=== PATIENT | male | born 1965 | race Caucasian/White ===

== ENCOUNTER 2022-03-23 15:31 | Inpatient (IN) | payer MEDICAID ==
[~2022-03-23] VITALS: Ht 180.3 cm; Wt 72.6 kg
--- NOTE | 2022-03-23 16:05 | NUR ---
PT W/ C/O MULTIPLE SKIN LESIONS X6 DAYS. PT STATES HE GOT TESTED FOR MONKEY PO 2 DAYS AGO BUT NO RESULT YET. TO ER BED 6.
--- NOTE | 2022-03-23 16:20 | NUR ---
DALLIN DEL RIO, AT BEDSIDE FOR EVAL
[2022-03-23] MEDS ORDERED: IBUPROFEN SUSP 100 MG/5 ML UDC ONE (16:41)
[2022-03-23] MEDS ORDERED: KETOROLAC TROMETHAMINE INJ 30 MG/ML VIAL IV ONE (17:00)
[2022-03-23] MEDS ORDERED: VANCOMYCIN 1 GM in IV D5W 250 ML IV ONE (17:00)
[2022-03-23] MEDS ORDERED: IV NS 0.9% 1,000 ML BAG IV ONE (17:00)
[2022-03-23] MEDS ORDERED: PIPERACILLIN /TAZOBACTAM 3.375 G in IV D5W 50 ML IV ONE (17:00)
[2022-03-23] MEDS ORDERED: DEXAMETHASONE SOD PHOSPHATE 10 MG/ML VIAL IV ONE (17:00)
[2022-03-23] MEDS ORDERED: diphenhydrAMINE HCL 50 MG/ML VIAL IV ONE (17:00)
--- NOTE | 2022-03-23 17:00 | NUR ---
MOVE SHEET SUBMITTED.
--- NOTE | 2022-03-23 17:21 | NUR ---
STREP AND GONOCOCCAL SWABS OBTAINED AND SENT TO LAB
[2022-03-23 17:22] LABS: BASOPHILS % (AUTO) 0.4 % (0.0-2.0); EOSINOPHILS % (AUTO) 4.7 % (0.0-6.0); HEMATOCRIT 41 % (39-51); HEMOGLOBIN 13.6 g/dL (13.5-17.5); LYMPHOCYTES # (AUTO) 1.1 K/uL (0.8-4.8); LYMPHOCYTES % (AUTO) 18.9 % (20.0-44.0); MEAN CORPUSCULAR HGB CONC 33 g/dl (31.0-36.0); MEAN CORPUSCULAR VOLUME 88 fL (80-96); MONOCYTES # (AUTO) 0.7 K/uL (0.1-1.30); MONOCYTES % (AUTO) 11.3 % (2.0-12.0); NEUTROPHILS # (AUTO) 3.9 K/uL (1.8-8.9); NEUTROPHILS % (AUTO) 64.7 % (43.0-81.0); PLATELET COUNT (AUTO) 139 K/uL (150-450); RED BLOOD CELL COUNT(AUTO) 4.65 MIL/uL (4.5-6.0); WHITE BLOOD COUNT (AUTO) 6.1 K/uL (4.3-11.0)
[2022-03-23] MEDS ORDERED: DEXAMETHASONE SOD PHOSPHATE 10 MG/ML VIAL ONE (17:23)
[2022-03-23] MEDS ORDERED: KETOROLAC TROMETHAMINE 15 MG/ML VIAL ONE (17:24)
[2022-03-23] MEDS ORDERED: diphenhydrAMINE HCL 50 MG/ML VIAL ONE (17:24)
--- NOTE | 2022-03-23 17:34 | NUR ---
COVID SWAB COLLECTED AND SENT TO LAB
[2022-03-23 17:52] LABS: CALCIUM, SERUM 8.4 mg/dL (8.5-10.1); CREATININE 1.2 mg/dL (0.6-1.3)
[2022-03-23 17:56] LABS: ALBUMIN 3.1 g/dL (3.4-5.0); BILIRUBIN,DIRECT 0.2 mg/dL (0.0-0.2); BILIRUBIN,TOTAL 0.5 mg/dL (0.2-1.0); TOTAL PROTEIN, SERUM 9.2 g/dL (6.4-8.2)
[2022-03-23 18:30] LABS: MONOTEST NEGATIVE (NEGATIVE)
--- NOTE | 2022-03-23 18:38 | NUR ---
PT REQUESTED FOR TYLENOL FOR PAIN/CHILLS; INFORMED DALLIN DEL RIO, W/ ORDER FOR TYLENOL ES 1000MG, ORDER IS READ BACK AND VERIFIED.
[2022-03-23] MEDS ORDERED: ACETAMINOPHEN ES 500 MG TABLET ONE (18:41)
[2022-03-23] MEDS ORDERED: ACETAMINOPHEN ES 500 MG TABLET PO ONE (19:00)
--- NOTE | 2022-03-23 19:04 | NUR ---
[facility] CALLED ASSISTANT BOILER OPERATOR PAGED.
--- NOTE | 2022-03-23 19:25 | NUR ---
OFFERED PT URINE CUP; NOT ABLE TO URINATE AT THIS TIME. WILL F/U WITH URINE SAMPLE
[2022-03-23] MEDS ORDERED: Z GUARD REMEDY 4 OZ OINT TP PRN (19:30)
[2022-03-23] MEDS ORDERED: ACETAMINOPHEN 325 MG TABLET PO PRN (19:30)
[2022-03-23] MEDS ORDERED: MAGNESIUM HYDROXIDE 30 ML UDC PO PRN (19:30)
[2022-03-23] MEDS ORDERED: ONDANSETRON HCL/PF 4 MG/2 ML VIAL IVP PRN (19:30)
[2022-03-23] MEDS ORDERED: ZOLPIDEM TARTRATE 5 MG TABLET PO PRN (19:30)
[2022-03-23] MEDS ORDERED: MAG HYDROX/AL HYDROX/SIMETH 30 ML UDC PO PRN (19:30)
--- NOTE | 2022-03-23 21:30 | NUR ---
URINE COLLECTED AND SENT TO LAB
[2022-03-23 22:16] LABS: BILIRUBIN,URINE NEGATIVE (NEGATIVE); COLOR,URINE YELLOW (YELLOW); LEUKOCYTE ESTERASE ,URINE TRACE (NEGATIVE); NITRITE, URINE NEGATIVE (NEGATIVE); PROTEIN,URINE NEGATIVE (NEGATIVE); UGLUCOSE NEGATIVE (NEGATIVE); UROBILINOGEN,URINE 0.2 EU/dL (0.2)
[2022-03-24] MEDS ORDERED: CEFTRIAXONE 1GM BAG (ER ONLY) 50 ML IV ONE (01:41)
[2022-03-24] MEDS: ZOSYN IVPB 3.375 G in IV D5W 50ml IV SCH ×3 (01:46→06:14)
[2022-03-24] MEDS: IV NS 0.9% 1,000 ML IV PRN ×2 (01:47→11:37)
[2022-03-24 02:16] LABS: BACTERIA,URINE None seen /HPF (None Seen); RBC,URINE 0-2 /HPF (0-2); SQUAMOUS EPITHELIAL CELL,UR Rare /HPF (None Seen); WBC,URINE 0-2 /HPF (0-3)
[2022-03-24 05:25] LABS: BASOPHILS % (AUTO) 0.2 % (0.0-2.0); EOSINOPHILS % (AUTO) 0.1 % (0.0-6.0); HEMATOCRIT 42 % (39-51); HEMOGLOBIN 13.8 g/dL (13.5-17.5); LYMPHOCYTES # (AUTO) 0.9 K/uL (0.8-4.8); LYMPHOCYTES % (AUTO) 21.7 % (20.0-44.0); MEAN CORPUSCULAR HGB CONC 33 g/dl (31.0-36.0); MEAN CORPUSCULAR VOLUME 88 fL (80-96); MONOCYTES # (AUTO) 0.2 K/uL (0.1-1.30); MONOCYTES % (AUTO) 3.8 % (2.0-12.0); NEUTROPHILS % (AUTO) 74.2 % (43.0-81.0); PLATELET COUNT (AUTO) 123 K/uL (150-450); RED BLOOD CELL COUNT(AUTO) 4.71 MIL/uL (4.5-6.0)
[2022-03-24 05:38] LABS: CALCIUM, SERUM 8.4 mg/dL (8.5-10.1); MAGNESIUM 2.7 mg/dL (1.8-2.4); PHOSPHORUS 3.8 mg/dL (2.5-4.9); POTASSIUM 4.6 mmol/L (3.5-5.1)
[2022-03-24] MEDS ORDERED: VANCOMYCIN 1 GM in IV D5W 250ml IV ONE (06:00)
[2022-03-24] MEDS ORDERED: PIPERACILLIN /TAZOBACTAM 3.375 G VIAL IV ONE (06:10)
[2022-03-24] MEDS ORDERED: VANCOMYCIN 0.75 GM in IV D5W 250 ML IV SCH (08:00)
[2022-03-24] MEDS ORDERED: VANCOMYCIN 1 GM in IV D5W 250 ML IV SCH (08:00)
--- NOTE | 2022-03-24 08:07 | NUR ---
REPORT GIVEN TO ANGEL LUIS FRIAS FOR SHUKRI
[2022-03-24] MEDS ORDERED: BICT1TAB PO (08:10)
[2022-03-24] MEDS ORDERED: ALBU2.5V11 NEB (08:10)
[2022-03-24] MEDS ORDERED: LORA10TA7 PO (08:10)
[2022-03-24] MEDS ORDERED: FLUT12AE15 INH (08:10)
--- NOTE | 2022-03-24 08:45 | NUR ---
RN NOTE RECEIVED PATIENT PLACED IN ROOM 117-2 STABLE CONDITION
[2022-03-24] MEDS: PIPERACILLIN /TAZOBACTAM 3.375 G in IV D5W 100 ML IV SCH ×2 (11:36→18:55)
[2022-03-24] MEDS ORDERED: PIPERACILLIN /TAZOBACTAM 3.375 G in IV D5W 50 ML IV SCH (12:00)
--- NOTE | 2022-03-24 13:00 | NUR ---
RN NOTE PATENTS ROOM CHANGED DUE TO MONKEY POX RESULT PATIENT INFORMED RN AND WATER PUMPER THAT HE RECEIVED CALL FROM [employer] [facility] CONFIRMING POSITIVE RESULT. DISCUSSED WITH PATIENT THE NEED FOR A PHYSICAL COPY OF RESULTS PER PATIENT HE WILL ASK [facility] FOR RECORD. PLACED IN ISOLATION ROOM 105, PATIENT TRANSFERRED IN STABLE CONDITION.
[2022-03-24 16:00] VITALS: BP 105/60
[2022-03-24] MEDS: VANCOMYCIN 1 GM in IV D5W 250 ML IV SCH (17:45)
--- NOTE | 2022-03-24 18:48 | NUR ---
RN CLOSING NOTE PATIENT RESTING IN BED A/OX4 ON ROOM AIR WITH NO CURRENT COMPLAINTS OF PAIN IS ABLE TO MAKE NEEDS KNOWN. SAFETY MEASURES IN PLACE, BED IN THE LOWEST SETTING 2 SIDE RAILS UP, CALL LIGHT WITHIN REACH. PATIENT IS ON ISOLATION PRECAUTIONS. WILL ENDORSE TO NIGHT NURSE FOR SHUKRI.
[2022-03-24 20:00] VITALS: BP 120/74
--- NOTE | 2022-03-24 22:05 | NUR ---
MS RN OPENING NOTE PT RECEIVED IN BED AWAKE, A&O X4, CALM, COOPERATIVE, PLEASANT. PT ON RA WITH CURRENT O2SAT OF 96%; PT IN NO APPARENT DISTRESS, NO SOB OR COUGH, NON-LABORED AND EQUAL BREATHING; APPEARS COMFORTABLE. VSS, WILL MONITOR THROUGHOUT THE NIGHT NEEDED. PT NOTED TO HAVE RASH THAT'S RED IN COLOR LOCATED ON GROIN, ARMS, UNDERARMS, CHEST, AND LEGS; NO BLISTERS NOTED. PT NOTED TO BE AMBULATORY WITH STEADY GAIT. ALEJANDRA MIDLINE INTACT AND PATENT, FLUSHES EASILY WITH NO RESISTANCE; NS RUNNING AT 75 ML/HR AND ZOSYN RUNNING AT 25 ML/HR. BED IN LOWEST POSITION, CALL LIGHT WITHIN REACH, SIDE RAILS UP X2. WILL CONTINUE TO MONITOR THROUGHOUT THE NIGHT.
[2022-03-25] MEDS: PIPERACILLIN /TAZOBACTAM 3.375 G in IV D5W 100 ML IV SCH ×3 (02:11→17:08)
[2022-03-25] MEDS: HYDROCODONE/APAP 10/325MG TABLET PO PRN (02:27)
--- NOTE | 2022-03-25 02:28 | NUR ---
RN NOTE PT COMPLAINS OF A 9/10 PAIN ON HIS TONGUE THAT'S DESCRIBED ACHING AND THROBBING. PT ADMINISTERED NORCO 1 TAB. WILL MONITOR FOR EFFECTIVENESS.
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
[2022-03-25] MEDS ORDERED: DEXAMETHASONE SOD PHOSPHATE 4 MG/ML VIAL IV ONE (03:30)
--- NOTE | 2022-03-25 03:31 | NUR ---
RN NOTE PT REPORTS THAT HIS RASHES ARE FEELING EXTREMELY INFLAMED AND SAYS THAT THE DECADRON HE RECEIVED WHILE HE WAS IN THE ER WAS EFFECTIVE. OBTAINED ORDER FROM KOFI VICTORIA FOR DECADRON IV 4 MG X1. ORDER OBTAINED AND CARRIED OUT
[2022-03-25 04:00] VITALS: BP 122/82
[2022-03-25] MEDS: VANCOMYCIN 1 GM in IV D5W 250 ML IV SCH (05:29)
[2022-03-25] MEDS: IV NS 0.9% 1,000 ML IV PRN (05:43)
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
[2022-03-25 07:09] LABS: CALCIUM, SERUM 7.9 mg/dL (8.5-10.1); CREATININE 0.9 mg/dL (0.6-1.3)
--- NOTE | 2022-03-25 07:46 | NUR ---
MS RN NOTE PT ASLEEP BUT EASILY AROUSABLE, A&O X4, ON RA WITH O2SAT RANGING FROM 96%-98% WITH NO S/S OF RESP DISTRESS. ALEJANDRA MIDLINE G#18, INTACT AND PATENT, FLUSHES EASILY WITH NO RESISTANCE; NS INFUSING 75 ML/HR. ALL SAFETY MEASURES IN PLACE. BED IN LOWEST POSITION, CALL LIGHT WITHIN REACH, SIDE RAILS UP X2. WILL CONTINUE PLAN OF CARE.
--- NOTE | 2022-03-25 09:02 | NUR ---
WOUND CARE CONSULT: PT PRESENTS WITH RASH/DISCOLORATION TO RT INNER THIGH AND OPEN AREA, PRESENT ON ADMISSION. RECOMMENDATIONS MADE FOR SKIN PROTECTION AND WOUND CARE. DISCUSSED WITH NURSING STAFF. IN AGREEMENT WITH PLAN OF CARE. Addendum: 03/25/22 at 1041 [address] ADA MONDRAGON WAS CALLED FOR SURGICAL CONSULT REQUEST.
[2022-03-25 12:00] VITALS: BP 123/85
[2022-03-25] MEDS ORDERED: ACYC400T19 PO (14:35)
[2022-03-25] MEDS: VANCOMYCIN 1.25 GM in IV D5W 250 ML IV SCH (17:08)
--- NOTE | 2022-03-25 18:21 | NUR ---
MS RN CLOSING NOTE PT SITTING IN BED AWAKE. A&O X4, CALM, COOPERATIVE. ON RA WITH O2SAT AT 97% WITH NO S/S OF RESP DISTRESS. ALEJANDRA MIDLINE INTACT AND PATENT, FLUSHES EASILY WITH NO RESISTANCE; NS INFUSING AT 75 ML/HR. ALL DUE MEDS ADMINISTERED. BED IN LOWEST POSITION, CALL LIGHT WITHIN REACH, SIDE RAILS UP X2. WILL ENDORSE TO NEXT NURSE ON DUTY FOR CONTINUITY OF CARE.
[2022-03-25] MEDS ORDERED: ALBUTEROL SULFATE 8 GM HFA.AER.AD IH PRN (19:00)
--- NOTE | 2022-03-25 19:30 | NUR ---
RN note Received patient in bed, awake, alert and verbally responsive. able to make needs known. breathing even and unlabored. tolerating room air. denies sob. Denies chest pain at this time. skin warm and dry to touch. right upper arm midline intact, infusing ns at 75 cc/hr and zosyn. denies pain at this time. dressing changed on right inner thigh. Isolation precaution followed. All needs attended, bed low, in locked position. call light within reach.
[2022-03-25 20:00] VITALS: BP 121/84
[2022-03-25] MEDS ORDERED: FLUTICASONE/SALMETEROL DISKUS IH SCH (21:00)
[2022-03-26] MEDS: PIPERACILLIN /TAZOBACTAM 3.375 G in IV D5W 100 ML IV SCH ×3 (01:31→18:06)
[2022-03-26] MEDS: IV NS 0.9% 1,000 ML IV PRN ×2 (01:32→22:45)
--- NOTE | 2022-03-26 01:54 | NUR ---
RN Note patient woke up and stated he was feeling jittery. requesting for meds to help him calm and sleep. Requested for ativan. Patient also complained of sore throat. no cough at this time. Informed watermelon harvesting supervisor, michael. Per michael, Ativan 1 mg q8 PRN & Lozenges q4 PRN. New order noted and carried out.
[2022-03-26] MEDS ORDERED: LORAZEPAM 1 MG TABLET PO PRN (02:00)
[2022-03-26 04:00] VITALS: BP 131/79
[2022-03-26] MEDS ORDERED: MENTHOL/CETYLPYRD (CEPACOL) 1 LOZ LOZENGE ONE (05:33)
[2022-03-26] MEDS: MENTHOL/CETYLPYRD (CEPACOL) 1 LOZ LOZENGE PO PRN ×4 (05:35→22:39)
[2022-03-26] MEDS: VANCOMYCIN 1.25 GM in IV D5W 250 ML IV SCH ×2 (05:36→18:06)
[2022-03-26 07:03] LABS: CALCIUM, SERUM 8.2 mg/dL (8.5-10.1); CREATININE 1.1 mg/dL (0.6-1.3); POTASSIUM 3.8 mmol/L (3.5-5.1)
--- NOTE | 2022-03-26 07:30 | NUR ---
RN NOTES PT FOUND SEMI FOWLERS, APPEARS TO BE SLEEPING DISPLAYING NO S/S OF DISTRESS, FLACC = 0 AND BREATHING IS EVEN AND UNLABORED ON RA. R UA ML IS PATIENT AND INTACT. RN WILL CONTINUE CARE PLAN AND ANTICIPATE NEEDS. SAFETY MEASURES IN PLACE, BED LOCKED AND IN LOWEST POSITION, SIDE RAILS UPX2, CALL LIGHT WITHIN REACH, BED ALARM ARMED.
[2022-03-26] MEDS: HYDROCODONE/APAP 10/325MG TABLET PO PRN (09:46)
[2022-03-26] MEDS: LORATADINE 10 MG TABLET PO SCH (09:46)
[2022-03-26 12:00] VITALS: BP 139/82
[2022-03-26] MEDS ORDERED: LIDOCAINE VISCOUS 2% UD 15 ML UDC MM SCH (12:00)
[2022-03-26] MEDS: oxyCODONE IR immediate release 5 MG PO PRN ×3 (12:56→22:45)
[2022-03-26] MEDS: LIDOCAINE VISCOUS 2% UD 15 ML UDC MM SCH ×2 (12:56→22:38)
[2022-03-26] MEDS: [UNRECOGNIZED DRUG - OTHER] PO SCH (16:55)
--- NOTE | 2022-03-26 19:30 | NUR ---
RN NOTE RECEIVED PATIENT IN BED, AO X 4, IN NO ACUTE DISTRESS AT THIS TIME. BREATHING EVEN AND UNLABORED, SATURATION AT 98% ON ROOM AIR, HR IS 88. IV SITE AT LAC 20G, AND ALEJANDRA MIDLINE BOTH PATENT AND FLUSHING WELL, NO S/S OF INFECTION OR INFILTRATION WITH NS INFUSING AT 75 ML/HR. SAFETY MEASURES IMPLEMENTED. PATIENT BED ALARM IS ON. HEAD OF BED ELEVATED. BED IS LOCKED, IN LOWEST POSITION AND SIDE RAILS UP. CALL LIGHT WITHIN REACH OF THE PATIENT. WILL CONTINUE TO MONITOR AND REASSESS FOR ANY CHANGES.
--- NOTE | 2022-03-26 19:32 | NUR ---
RN NOTES PT FOUND SEMI FOWLERS, APPEARS TO BE SLEEPING JUST LIKE IN AM DISPLAYING NO S/S OF DISTRESS, FLACC = 0 AND BREATHING IS EVEN AND UNLABORED ON RA. R UA ML IS PATIENT AND INTACT. TECOVIRIMAT BY PT REPORT IS AMELIORATING CONDITION. SBAR AND REPORT GIVEN TO DOUBLE HEAD MACHINE OPERATOR RN, ALL QUESTIONS ANSWERED. SAFETY MEASURES IN PLACE, BED LOCKED AND IN LOWEST POSITION, SIDE RAILS UPX2, CALL LIGHT WITHIN REACH, BED ALARM ARMED.
[2022-03-26 20:00] VITALS: BP 145/88
[2022-03-27] VITALS: BP 121/74
[2022-03-27] MEDS: PIPERACILLIN /TAZOBACTAM 3.375 G in IV D5W 100 ML IV SCH ×2 (01:45→10:40)
[2022-03-27 04:00] VITALS: BP 142/86
[2022-03-27] MEDS: LIDOCAINE VISCOUS 2% UD 15 ML UDC MM SCH ×4 (04:21→21:00)
[2022-03-27] MEDS: oxyCODONE IR immediate release 5 MG PO PRN ×2 (04:21→11:29)
[2022-03-27] MEDS: MENTHOL/CETYLPYRD (CEPACOL) 1 LOZ LOZENGE PO PRN ×3 (04:22→10:59)
[2022-03-27 06:39] LABS: BASOPHILS % (AUTO) 0.5 % (0.0-2.0); EOSINOPHILS % (AUTO) 4.5 % (0.0-6.0); HEMATOCRIT 38 % (39-51); HEMOGLOBIN 12.6 g/dL (13.5-17.5); LYMPHOCYTES # (AUTO) 2.2 K/uL (0.8-4.8); LYMPHOCYTES % (AUTO) 24.5 % (20.0-44.0); MEAN CORPUSCULAR HGB CONC 33 g/dl (31.0-36.0); MEAN CORPUSCULAR VOLUME 88 fL (80-96); MONOCYTES % (AUTO) 10.9 % (2.0-12.0); NEUTROPHILS # (AUTO) 5.3 K/uL (1.8-8.9); NEUTROPHILS % (AUTO) 59.6 % (43.0-81.0); PLATELET COUNT (AUTO) 169 K/uL (150-450); RED BLOOD CELL COUNT(AUTO) 4.34 MIL/uL (4.5-6.0); WHITE BLOOD COUNT (AUTO) 8.8 K/uL (4.3-11.0)
[2022-03-27 07:10] LABS: CALCIUM, SERUM 8.3 mg/dL (8.5-10.1); PHOSPHORUS 3.4 mg/dL (2.5-4.9)
--- NOTE | 2022-03-27 07:36 | NUR ---
RN OPENING NOTES: RECEIVED PATIENT IN BED, ASLEEP, BUT EASILY AROUSABLE TO VOICE. PATIENT ON RA , TOLERATING WELL. NO S/S SOB OR RESPIRATORY DISTRESS. BREATHING EQUAL AND UNLABORED. PATIENT IS ALERT, ORIENTED X 4. HAS AN IV ACCESS ON ALEJANDRA MIDLINE INFUSING WITH NS @ 75 ML/HR, ALSO HAS SL ON LAC # 20, PATENT AND FLUSHING WELL, NO S/S INFILTRATION NOTED. SAFETY MEASURES IN PLACE. HOB LOCKED AND IN LOWEST POSITION, CALL LIGHT WITHIN REACH. SR UP X 2. WILL CONTINUE TO MONITOR PATIENT THROUGHOUT SHIFT.
--- NOTE | 2022-03-27 08:01 | NUR ---
RECEIVED VANCO TROUGH OF 15, VANCO GIVEN ORDERED
[2022-03-27] MEDS: VANCOMYCIN 1.25 GM in IV D5W 250 ML IV SCH (08:04)
[2022-03-27] MEDS: LORATADINE 10 MG TABLET PO SCH (08:05)
[2022-03-27] MEDS: [UNRECOGNIZED DRUG - OTHER] PO SCH ×2 (08:05→17:12)
--- NOTE | 2022-03-27 08:36 | NUR ---
PATIENT C/O SORE THROAT AND DIFFICULTY SWALLOWING. DR. ANDERSEN NOTIFIED AND WAS INSTRUCTED TO FOLLOW PRESCRIBED ORDERS FOR NOW AND WILL COME AND VISIT THE PATIENT LATER. PATIENT INFORMED. PATIENT WAS OFFERED WARM TEA
[2022-03-27] MEDS: IV NS 0.9% 1,000 ML IV PRN (11:27)
[2022-03-27 12:00] VITALS: BP 146/85
--- NOTE | 2022-03-27 13:00 | NUR ---
PATIENT REFUSED HIS LIDOCAINE ORAL WASH
[2022-03-27] MEDS ORDERED: DEXAMETHASONE SOD PHOSPHATE 10 MG/ML VIAL IV ONE (15:00)
--- NOTE | 2022-03-27 17:24 | NUR ---
PATIENT NOTED TO HAVE TEMP OF 100.3, TYLENOL ADMINISTERED ORDERED
--- NOTE | 2022-03-27 18:30 | NUR ---
RECHECKED PATIENT'S TEMP AND IT WAS 98.9.
--- NOTE | 2022-03-27 18:49 | NUR ---
PATIENT IN BED ASLEEP, BUT EASILY AROUSES TO SOUND AND TACTILE STIMULI. PATIENT ALERT AND ORIENTED X 4. ON RA WITH OXYGEN SATURATION OF 97% HAS IV LINE ON ALEJANDRA MIDLINE INFUSING WELL WITH NS @ 75ML/HR. ALSO HAS SL ON LAC # 20, INTACT AND FLUSHES WELL. NO C/O PAIN OR DISCOMFORT NOTED AT THIS TIME. ALL NEEDS ATTENDED TO DURING SHIFT. SAFETY MEASURES IN PLACE. WILL ENDORSE TO NEXT SHIFT NURSE FOR SHUKRI.
--- NOTE | 2022-03-27 19:10 | NUR ---
RN OPENING NOTES RECEIVED PATIENT ON BED, A/O x 4, ABLE TO MAKE NEEDS KNOWN. ON ROOM AIR SATING AT 97%. RESPIRATORY EVEN AND UNLABORED, NO SOB NOTED. AFEBRILE, NO S/S OF DISTRESS NOTED. PATIENT WITH ALEJANDRA MID LINE, LAC #20 PERIPHERAL LINE, FLUSHED WITH NS, NO S/S OF INFILTRATION NOTED AT SITE. WITH IVF OF NS @ 75 ML/HR. ALL SAFETY MEASURE PROVIDED. BED IN LOWEST POSITION, LOCKED. BED ALARM ARMED. CONTINUE TO MONITOR.
[2022-03-27 20:00] VITALS: BP 105/73
--- NOTE | 2022-03-27 21:50 | NUR ---
RN NOTES PATIENT REFUSED LIDOCAINE VISCOUS 2% TRISTANIAN AND SWALLOW, EXPLAINED RISKS AND BENEFITS, OFFER 3X STILL REFUSED.
[2022-03-28] MEDS ORDERED: DEXAMETHASONE SOD PHOSPHATE 4 MG/ML VIAL IV ONE
[2022-03-28 04:00] VITALS: BP 107/71
[2022-03-28] MEDS: LIDOCAINE VISCOUS 2% UD 15 ML UDC MM SCH ×3 (05:00→21:00)
[2022-03-28] MEDS: IV NS 0.9% 1,000 ML IV PRN (05:31)
--- NOTE | 2022-03-28 05:37 | NUR ---
RN NOTES PATIENT REFUSED LIDOCAINE VISCOUS 2% MACANESE AND SWALLOW, EXPLAINED RISKS AND BENEFITS, OFFER 3X STILL REFUSED.
--- NOTE | 2022-03-28 07:30 | NUR ---
RN NOTES REMAIN STABLE THROUGH PUT THE SHIFT. RESPIRATORY EVEN AND UNLABORED, NO SOB NOTED. AFEBRILE, NO S/S OF DISTRESS NOTED. WITH IVF OF NS @ 75 ML/HR. ALL DUE MEDS GIVEN. ALL SAFETY MEASURE PROVIDED. BED IN LOWEST POSITION, LOCKED. BED ALARM ARMED. REPORT GIVEN TO MORNING SHIFT NURSE FOR CONTINUITY OF CARE
[2022-03-28 07:49] LABS: CALCIUM, SERUM 8.5 mg/dL (8.5-10.1); CREATININE 0.9 mg/dL (0.6-1.3); MAGNESIUM 2.8 mg/dL (1.8-2.4); PHOSPHORUS 3.6 mg/dL (2.5-4.9); POTASSIUM 4.5 mmol/L (3.5-5.1)
[2022-03-28] MEDS: LORATADINE 10 MG TABLET PO SCH (09:10)
[2022-03-28] MEDS: [UNRECOGNIZED DRUG - OTHER] PO SCH ×2 (09:10→17:02)
[2022-03-28 09:39] LABS: BASOPHILS % (AUTO) 0.2 % (0.0-2.0); HEMATOCRIT 45 % (39-51); HEMOGLOBIN 14.6 g/dL (13.5-17.5); LYMPHOCYTES # (AUTO) 1.5 K/uL (0.8-4.8); LYMPHOCYTES % (AUTO) 17.7 % (20.0-44.0); MEAN CORPUSCULAR HGB CONC 33 g/dl (31.0-36.0); MEAN CORPUSCULAR VOLUME 89 fL (80-96); MONOCYTES # (AUTO) 0.5 K/uL (0.1-1.30); MONOCYTES % (AUTO) 6.6 % (2.0-12.0); NEUTROPHILS # (AUTO) 6.3 K/uL (1.8-8.9); NEUTROPHILS % (AUTO) 75.5 % (43.0-81.0); PLATELET COUNT (AUTO) 166 K/uL (150-450); RED BLOOD CELL COUNT(AUTO) 5.07 MIL/uL (4.5-6.0); WHITE BLOOD COUNT (AUTO) 8.3 K/uL (4.3-11.0)
[2022-03-28] MEDS: PENICILLIN V POTASSIUM 500 MG TABLET PO SCH ×2 (12:15→22:21)
[2022-03-28 16:00] VITALS: BP 120/80
[2022-03-28] MEDS ORDERED: PENI500T PO (16:27)
[2022-03-28] MEDS ORDERED: [UNRECOGNIZED DRUG - CODE] PO (16:27)
[2022-03-28] MEDS: oxyCODONE IR immediate release 5 MG PO PRN ×2 (18:16→22:38)
[2022-03-28] MEDS: MENTHOL/CETYLPYRD (CEPACOL) 1 LOZ LOZENGE PO PRN ×2 (18:18→22:37)
--- NOTE | 2022-03-28 19:15 | NUR ---
MS RN CLOSING NOTE: PT. REMAINS IN BED, AWAKE, AOX4. ON RA, WITH NO S/S OF RESPIRATORY DISTRESS. AFEBRILE, NO COMPLAINTS OF PAIN/DISTRESS NOTED AT THIS TIME. IV PATENT WITH ALEJANDRA MID LINE, LAC #20 PERIPHERAL LINE, FLUSHED WITH NS, NO S/S OF INFILTRATION NOTED AT SITE. IVF OF NS RUNNING @ 75 ML/HR. SAFETY PRECAUTIONS MAINTAINED: BED IN LOWEST AND LOCKED POSITION. WILL ENDORSE CONTINUITY OF CARE TO SINGING TEACHER RN.
[2022-03-28 20:00] VITALS: BP 118/77
--- NOTE | 2022-03-28 21:44 | NUR ---
MS RN OPENING NOTE PT RECEIVED IN BED, AWAKE, A&O X4, PLEASANT, CALM, COOPERATIVE. PT ON RA WITH CURRENT O2SAT OF 95%; PT SHOWS NO S/S OF RESP DISTRESS, NO SOB OR COUGH, NON-LABORED AND EQUAL BREATHING; APPEARS CALM AND COMFORTABLE. VSS, WILL CONTINUE TO MONITOR THROUGHOUT THE NIGHT NEEDED. PT ABLE TO AMBULATE AROUND THE ROOM WITH STEADY GAIT. ALEJANDRA MIDLINE AND LAC 20G INTACT AND PATENT, FLUSHES EASILY WITH NO RESISTANCE; CURRENTLY HAS NS RUNNING AT 75 ML/HR. BED IN LOWEST POSITION, CALL LIGHT WITHIN REACH, SIDE RAILS UP X2. WILL CONTINUE TO MONITOR THROUGHOUT THE NIGHT.
--- NOTE | 2022-03-28 21:47 | NUR ---
RN NOTE PER ENDORSEMENT FROM DAYSHIFT NURSE AND REPORT FROM PT, AMBULANCE WAS SUPPOSED TO [facility] PT AT AROUND 1930. NO AMBULANCE SHOWED UP. ATTEMPTED TO CALL PT'S INSURANCE WITH NO SUCCESS. UPDATED KOFI VICTORIA REGARDING ISSUE AND HOW PT WILL BE STAYING OVERNIGHT.
--- NOTE | 2022-03-28 22:31 | NUR ---
RN NOTE PT REFUSED LIDOCAINE SWISH AND SPIT AND INSTEAD ASKED FOR THE CEPACOL
--- NOTE | 2022-03-28 22:39 | NUR ---
RN NOTE PT REPORTS OF A 8/10 PAIN IN HIS THROAT AND TONGUE. PT REQUESTS FOR THE CEPACOL AND ADDITIONAL PAIN MEDICINE. PT ADMINISTERED 1 LOZENGE OF CEPACOL AND OXYCODONE 10 MG.
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
[2022-03-29] MEDS ORDERED: DEXAMETHASONE SOD PHOSPHATE 4 MG/ML VIAL IV ONE (01:30)
[2022-03-29 04:00] VITALS: BP 129/78
[2022-03-29] MEDS: LIDOCAINE VISCOUS 2% UD 15 ML UDC MM SCH ×2 (05:00→12:04)
--- NOTE | 2022-03-29 05:02 | NUR ---
RN NOTE PT REFUSED THE LIDOCAINE SCHEDULED FOR 0500.
--- NOTE | 2022-03-29 06:12 | NUR ---
RN NOTE PT REFUSES TO HAVE HIS LABS DRAWN HE STATES HE IS GOING HOME TODAY.
--- NOTE | 2022-03-29 06:17 | NUR ---
MS RN CLOSING NOTE PT REMAINS IN BED, ASLEEP BUT EASILY AROUSABLE, A&O X4, CALM, COOPERATIVE; SLEPT WELL THROUGHOUT THE NIGHT. ON RA WITH O2SAT STABLE AT 95% THROUGHOUT THE NIGHT WITH NO S/S OF RESP DISTRESS, NON-LABORED AND EQUAL BREATHING, NO COUGH OR SOB. VSS THROUGHOUT THE NIGHT WITH NO SIGNIFICANT CHANGES. PT AMBULATORY WITH STEADY GAIT. ALEJANDRA MIDLINE AND LAC 20G INTACT AND PATENT, FLUSHES EASILY WITH NO RESISTANCE. BED IN LOWEST POSITION, CALL LIGHT WITHIN REACH, SIDE RAILS UP X2. ALL DUE MEDS ADMINISTERED THROUGHOUT THE NIGHT; PT KEPT COMFORTABLE. WILL ENDORSE TO DAYSHIFT NURSE TO CONTINUE CARE.
--- NOTE | 2022-03-29 07:52 | NUR ---
RN NOTE PT RESTING IN BED, AWAKE ALERT AND VERBALLY RESPONSIVE. NOT IN DISTRESS. IN ROOM AIR. WILL CONT TO MONITOR. CONT IN CONTACT PREC. SAFETY MEASURES MAINTAINED.
[2022-03-29] MEDS: LORATADINE 10 MG TABLET PO SCH (08:38)
[2022-03-29] MEDS: PENICILLIN V POTASSIUM 500 MG TABLET PO SCH (08:38)
[2022-03-29] MEDS: [UNRECOGNIZED DRUG - OTHER] PO SCH (09:49)
--- NOTE | 2022-03-29 11:40 | NUR ---
RN NOTE PT REFUSED AM LABS. PMD MADE AWARE, NO NEW ORDERS. PT IS TO BE D/C TODAY.
[2022-03-29] MEDS ORDERED: PENICILLIN G BENZATHINE 2.4 MMU/4 ML ML IM ONE (14:00)
--- NOTE | 2022-03-29 14:11 | NUR ---
RN NOTE PT D/C TO HOME. IN GOOD CONDITION. PT NOT IN RESPI DISTRESS. V/S STABLE AND WNL. WOUND CARE TEACHING DONE, PT ABLE TO DO RETURN DEMONSTRATION AND HAS GOOD UNDERSTANDING OF WOUND CARE. PO MEDS AND WOUND SUPPLY GIVEN.
== END 2022-03-29 14:12 | disposition home or self-care (01) | DRG 723 ==
LOC: ER 15:37 → TRANSITION 03-24 00:54 → MEDSG1 03-24 07:33
PROVIDERS: ADMIT Nurse Practitioner Acute Care; ATTEND Nurse Practitioner Acute Care
DX: B04 Monkeypox (principal); D69.6 Thrombocytopenia, unspecified; L03.115 Cellulitis of right lower limb; E83.51 Hypocalcemia; E87.1 Hypo-osmolality and hyponatremia; L03.314 Cellulitis of groin; A53.9 Syphilis, unspecified; A00-B99 Certain infectious and parasitic diseases; I10 Essential (primary) hypertension; R59.0 Localized enlarged lymph nodes; J45.909 Unspecified asthma, uncomplicated; Z87.891 Personal history of nicotine dependence; J02.0 Streptococcal pharyngitis; B95.0 Streptococcus, group A, as the cause of diseases classified elsewhere; J02.8 Acute pharyngitis due to other specified organisms
CPT/HCPCS: 36415; 80048-TC; 80076-TC; 80202-TC; 81001; 83605-TC; 83735-TC; 84100-TC; 85025-TC; 86060; 86308-TC; 86403-TC; 86592; 86593; 87040-TC; 87081-TC; 94799-TC; A6253; A6403; C9803; G0378; J0696; J1100; J1200; J1885; J2405; J2543; J3370; J7030; J7050; J7060